=== PATIENT | female | born 2000 | race Caucasian/White ===

== ENCOUNTER 2021-05-20 11:40 | Emergency (ER) | payer OTHER, SELFPAY ==
--- NOTE | ~2021-05-20 | XR_ITS ---
EXAMINATION: XR ANKLE, LEFT CLINICAL INFORMATION: Twisting ankle injury. COMPARISON: None TECHNIQUE: AP, lateral, and mortise views of the left ankle. FINDINGS: There is an ossicle adjacent to the tip of the lateral malleolus which is difficult to characterize. This is at least partially corticated and may in fact the arising from the bone which would suggest old injury. These findings could be artifactual with overlapping structures and acute fracture is not excluded. There is associated soft tissue swelling. No effusion is seen. Alignment the ankle mortise is anatomic. XR/XR ankle LT min 3V IMPRESSION: Ossicle adjacent to the tip of the lateral malleolus suggesting avulsion injury of undetermined chronicity.
[2021-05-20 12:46] VITALS: BP 158/101; PULSE 93; RESP 18; TEMP 36.6; O2SAT 100; BMI 47.2
--- NOTE | 2021-05-20 13:24 | ED.LOWEXIN ---
HPI - Extremity Injury (Lower) General Chief Complaint: Extremity Injury, Lower Stated Complaint: L ANKLE INJ AT WORK Time Seen by Provider: 05/20/21 12:57 Source: patient Mode of arrival: ambulatory Limitations: no limitations History of Present Illness MD complaint: ankle injury and fall Onset (ago): hour(s) (Prior to arrival) Type of Injury: other (Twist injury) Place: work (While walking into work tripped on a hole in the parking lot outside of [employer]) Severity: moderate Relieving factors: nothing Exacerbating factors: weight bearing, movement and palpation Context: fall (/twist injury) Associated symptoms: swelling and able to partially bear weight Other symptoms: none Treatments prior to arrival: cold therapy Related Data Previous Rx's Medication Instructions Recorded acetaminophen 500 mg tablet 1,000 mg PO QID PRN #14 tab 05/20/21 (Tylenol Extra Strength) ibuprofen 800 mg tablet 800 mg PO Q8H PRN #14 tab 05/20/21 Allergies Allergy/AdvReac Type Severity Reaction Status Date / Time No Known Allergies Allergy Unverified 02/17/20 16:44 [No Known Allergies*] Review of Systems Review of Systems: Constitutional : No Weight loss, No Fever, No Chills, No Night Sweats, No Fatigue, No Malaise ENT/Mouth : No Hearing loss, No Ear Pain, No Nasal Congestion, No Sinus Pain, No Hoarseness, No sore throat, No Rhinorrhea, No Swallowing Difficulty Eyes: No Eye Pain, No Swelling, No Redness, No Foreign Body, No Discharge, No Vision Changes Cardiovascular : No Chest Pain, No SOB, No Dyspnea on Exertion, No Orthopnea, No Edema, No Palpitations Respiratory : No Cough, No Sputum, No Wheezing, No Smoke Exposure, No Dyspnea Gastrointestinal : No Nausea, No Vomiting, No Diarrhea, No Constipation, No abdominal Pain, No Hematochezia, No Melena Genitourinary : no irregular bleeding, No Dysuria, No Urinary Frequency, No Hematuria, No Urinary Incontinence, No Urgency, No Flank Pain, No Urinary Flow Changes, No Hesitancy Musculoskeletal : + joint pain/swelling, No Myalgias Skin : No Skin Lesions, No rash Neuro : No Weakness, No Numbness, No Paresthesias, No Loss of Consciousness, No Dizziness, No Headache Psych : No Anxiety/Panic, No Depression, No SI/HI/AH/VH, No Social Issues, Heme/Lymph: No Bruising, No Bleeding,No Lymphadenopathy Endocrine : No Polyuria, No Polydipsia, No Temperature Intolerance Yes all other systems are reviewed and are negative [facility] Past Medical History Attestation statement: The following information was validated with the patient. Social History Social History Advance Directives: No Advance Directives Information Provided: Yes Patient : No Physical Exam Vital Signs: Vital Signs: Last Vital Signs Temp 98 F 05/20/21 12:46 Pulse 93 05/20/21 12:46 Resp 18 05/20/21 12:46 BP 158/101 H 05/20/21 12:46 Pulse Ox 100 05/20/21 12:46 BMI result Body Mass Index 47.2 vital signs have been reviewed as normal and appeared to be correct. Blood pressure 158/101 Heart rate normal. Respiration rate normal. Temperature normal. Oxygen saturation normal. Appearance: Alert. Oriented X3. No acute distress. Head: Normal external exam. Normocephalic. Atraumatic. Eyes: PERRLA. EOMI. Conjunctiva and sclera normal. Eyelids normal. ENT: Pharynx normal. Uvula midline. Moist mucous membranes. Neck: Normal inspection. Neck supple. FROM. CVS: Normal heart rate and rhythm. Respiratory: No respiratory distress. Painless inspiration. Skin: Skin warm and dry. Normal skin color. Normal skin turgor. No rashes/lesions/lacerations noted. Extremities: Patient moderate tense palpation to the left ankle at the lateral malleolus with moderate soft tissue swelling no obvious deformities or tender ligamentous injury noted. No signs of infection. Achilles tendon is intact. No lower extremity edema or calf tenderness is noted. No 5th metatarsal pain. Otherwise all other Extremities exhibit normal range of motion and nontender. Neuro: Oriented X 3. No motor deficit. No sensory deficit. Reflexes normal. Normal steady gait. No focal neuro deficits noted. Vascular: + 2 distal pedal pulses/+2 dorsalis pedis b/l. Normal cap refill. No cyanosis noted to lower extremity toes nails. Course Course Course Narrative: 20-year-old female presenting to the ED with a work related injury with complaints of left ankle pain after she had a mechanical fall where she was walking into her job in the parking lot and she twisted her ankle after it it went into a garner that was in the parking lot that she did not notice. Denies head injury or loss of consciousness. Denies paresthesias. X-ray revealed ossicle adjacent to the tip of the lateral malleolus suggesting avulsion injury of indeterminate chronicity therefore print out the results and explained to the patient she reported that that is chronic since she was in 8th grade she had a left ankle fracture. Therefore most likely patient with a ankle sprain. Will treat symptomatically placed in a ortho boot and instructed to follow-up with Orthopedic and follow-up with [facility] to return if any new or worsening symptoms. Patient understands agrees with this plan. MDM - Extremity Injury (Lower) Medical Records Attestation: I reviewed the patient's medical records. Imaging Data Left ankle x-ray: Attestation: I personally reviewed and interpreted this imaging study as follows: Radiologist's impression: FINDINGS: There is an ossicle adjacent to the tip of the lateral malleolus which is difficult to characterize. This is at least partially corticated and may in fact the arising from the bone which would suggest old injury. These findings could be artifactual with overlapping structures and acute fracture is not excluded. There is associated soft tissue swelling. No effusion is seen. Alignment the ankle mortise is anatomic.? XR/XR ankle LT min 3V IMPRESSION: Ossicle adjacent to the tip of the lateral malleolus suggesting avulsion injury of undetermined chronicity. Procedures Orthopedic Splinting/Casting Injury #1: Side: left Lower Extremity Injury Location: ankle Lower Extremity Immobilizer: post-op shoe Discharge Plan Discharge Clinical Impression: Ankle sprain and strain, Fall, Work related injury Patient Disposition: Home, Self-Care Instructions: Ankle Sprain (ED), Cold Compress or Soak (ED), Walking Boot (ED), Return to Work Instructions (ED) Prescriptions: New ibuprofen 800 mg tablet 800 mg PO Q8H PRN (Reason: pain) Qty: 14 RF: 0 acetaminophen [Tylenol Extra Strength] 500 mg tablet 1,000 mg PO QID PRN (Reason: fever or pain) Qty: 14 RF: 0 Referrals: [facility] [Provider Group] - 2 days Abraham Neil MD [Physician] - 2 days (If symptoms persist call to make a follow-up appointment within the next 1-2 weeks) Stand Alone Forms: Work/School Release
== END 2021-05-20 14:03 | disposition home or self-care (01) ==
PROVIDERS: Emergency Provider Emergency Medicine
DX: S93.402A Sprain of unspecified ligament of left ankle, initial encounter (principal); S96.912A Strain of unspecified muscle and tendon at ankle and foot level, left foot, initial encounter; X50.1XXA Overexertion from prolonged static or awkward postures, initial encounter; Y93.01 Activity, walking, marching and hiking; Y92.481 Parking lot as the place of occurrence of the external cause; Y99.0 Civilian activity done for income or pay
CPT/HCPCS: 73610; 99283

== ENCOUNTER → 2021-06-12 14:45 | Outpatient (BNVA) | payer OTHER, SELFPAY | PROVIDERS: Visit Provider Physician Assistant | DX: S93.402A Sprain of unspecified ligament of left ankle, initial encounter (principal) | CPT/HCPCS: 99202 ==

== ENCOUNTER 2023-04-23 05:46 | Emergency (ER) | payer BC, SELFPAY ==
--- NOTE | ~2023-04-23 | CT_ITS ---
EXAMINATION: CT HEAD WITHOUT CONTRAST CLINICAL INFORMATION: Seizure. Head strike. COMPARISON: None available. TECHNIQUE: Contiguous axial imaging was performed from the skull base to vertex without intravenous administration of contrast. This CT examination was performed using dose optimization techniques as appropriate, variously including the following: *Automated exposure control *Adjustment of mA and/or kV according to patient size (this includes techniques or standardized protocols for targeted exams where dose is matched to indication/reason for exam; i.e. extremities or head) *Use of iterative reconstruction technique DLP: 668.00 mGy-cm FINDINGS: No intra or extra-axial fluid collection or hemorrhage, mass, or mass effect. Sulci and ventricles normal. Calvarium is intact. Nuchal periosteal thickening seen within the right ethmoid sinus small fluid level observed in the right maxillary sinus. CT/CT head/brain wo IV con IMPRESSION: No acute intracranial pathology. Evidence of right-sided sinus disease.
[2023-04-23 05:55] VITALS: BP 142/96; PULSE 79; RESP 16; TEMP 36.7; O2SAT 94; BMI 54.7
--- NOTE | 2023-04-23 07:17 | ECG_ITS ---
Test Reason : DIZZINESS Blood Pressure : / mmHG Vent. Rate : 085 BPM Atrial Rate : 085 BPM P-R Int : 132 ms QRS Dur : 082 ms QT Int : 366 ms P-R-T Axes : 013 007 -02 degrees QTc Int : 435 ms Normal sinus rhythm with sinus arrhythmia Normal ECG No previous ECGs available Referred By: Generic ED Physician Electronically Signed By:LAURA RIOS MD
[2023-04-23 07:44] LABS: MANUAL DIFF FLAG NO
[2023-04-23 07:46] LABS: Basophils Absolute Auto 0.1 X10*3/uL (0.0-0.2); Basophils Percent Auto 0.8 % (0-2); Eosinophils Absolute Auto 0.1 X10*3/uL (0.0-0.4); Eosinophils Percent Auto 1.4 % (0-4); Hematocrit 41.1 % (37.0-47.0); Imm Gran Abs Auto 0.04 X10*3/uL (0.00-0.03); Imm Gran Pct Auto 0.4 % (0.0-0.4); Lymphocytes Absolute Auto 2.6 X10*3/uL (1.2-4.9); Lymphocytes Percent Auto 27.9 % (20-40); Mean Corpuscular HGB Conc 31.6 g/dl (31.0-35.0); Mean Corpuscular Hemoglobin 27.7 pg (27.0-33.0); Mean Corpuscular Volume 87.4 fL (80.0-98.0); Mean Platelet Volume 9.7 fL (9.4-12.3); Monocytes Absolute Auto 0.4 X10*3/uL (0.1-1.2); Monocytes Percent Auto 4.3 % (2-11); Neutrophils Percent Auto 65.2 % (45-73); Platelet Count 317 X10*3/uL (160-400); White Blood Count 9.2 X10*3/uL (4.8-10.8)
[2023-04-23 07:56] LABS: Anion Gap 11 (12-20); Blood Urea Nitrogen 9 mg/dL (9-16); Carbon Dioxide 23 mmol/L (22-29); Chloride 112 mmol/L (96-108); Creatinine Clr Calc Pharmacy 200.5; Estimated Glomerular Filt Rate > 60; Glucose Random 99 mg/dL (60-115); Potassium 3.8 mmol/L (3.3-5.1); Sodium 142 mmol/L (135-145)
[2023-04-23 08:18] LABS: Troponin-I High Sensitivity < 2.7 ng/L (<3.5-17.0)
--- NOTE | 2023-04-23 08:35 | PC.NURSE ---
Patient placed in Room Pivot 2. While sleeping, rolled over and struck ear on bedside table. +small cut and began to bleed. When gettign out to bed to address cut, she had +syncopal episode. + swollen upper lip. Appears well at present. Skin p/w/d. Resting quietly on stretcher awaiting provider evaluation.
--- NOTE | 2023-04-23 08:50 | ED.FALL ---
HPI - Fall General Chief Complaint: Fall Stated Complaint: head inj passed out Time Seen by Provider: 04/23/23 07:41 Source: patient Mode of arrival: ambulatory Limitations: no limitations History of Present Illness HPI Narrative: 22 year old female with pmhx significant for migraines (on topiramate), PCOS, and grand mal seizures presents to the ED today for evaluation s/p syncopal episode this morning. She reports turning over in bed this morning and hitting her right ear on the corner of her nightstand. Her R ear began to bleed. She reports walking into her kitchen to tend to the bleeding and then passing out. Syncopal episode was witnessed by her cousin who reports LOC lasting approx 1-2 minutse. Patient endorses urinary incontinence. Denies tongue bite or confusion. Reports history of syncopal episodes when she has extreme pain. States this felt similar. Additionally reports history of grand mal seizures as an which resolved by age 1. Is not currently on an anticonvulsant. Not on AC. Only complaint in ED at present is headache. Denies fever, chills, diaphoresis, neck or back pain, shortness of breath, palpitations, chest pain, wheezing, difficulty breathing, N/V, abdominal pain. Related Data Previous Rx's Medication Instructions Recorded acetaminophen 500 mg tablet 1,000 mg (2 x 500 mg) PO QID PRN 05/20/21 (Tylenol Extra Strength) fever or pain #14 tabs ibuprofen 800 mg tablet 800 mg PO Q8H PRN pain #14 tabs 05/20/21 Allergies Allergy/AdvReac Type Severity Reaction Status Date / Time No Known Allergies Allergy Verified 06/12/21 14:58 [No Known Allergies*] Review of Systems Review of Systems: Constitutional: No fever, chills, fatigue, night sweats, weight changes ENT/Mouth: No ear pain, hearing loss, nasal congestion, sinus pain, rhinorrhea, sore throat Eyes: No eye pain, swelling, redness, vision changes, discharge Cardio: No chest pain, palpitations, [place], orthopnea, peripheral edema Pulm: No SOB, cough, sputum, wheezing, dyspnea, hemoptysis GI: No nausea, vomiting, hematemesis, abdominal pain, diarrhea, constipation, hematochezia, melena : No irregular bleeding, dysuria, frequency, urgency, hesitancy, hematuria, flank pain, urinary flow changes, urinary incontinence or retention MSK: No back pain, neck pain, joint pain, myalgias Skin: No lesions, rashes Neuro: No weakness, numbness, paresthesias, LOC, dizziness, +headache All other systems reviewed and are negative. [facility] Past Medical History Attestation statement: The following information was validated with the patient. Source: old records reviewed and nursing notes reviewed Surgical History Hx of tonsillectomy Social History Advance Directives: No Advance Directives Information Provided: Yes Current occupational status: employed Current occupation: [employer] Physical Exam Vital Signs: Vital Signs: Last Vital Signs Temp 98.0 F 04/23/23 05:55 Pulse 79 04/23/23 05:55 Resp 16 04/23/23 05:55 BP 142/96 H 04/23/23 05:55 Pulse Ox 94 04/23/23 05:55 O2 Del Method Room Air 04/23/23 05:55 BMI result Body Mass Index 54.7 Vital signs stable Const: General: cooperative, healthy appearing, comfortable, no acute distress, alert and awake Nutritional Appearance: obese Orientation/consciousness: patient oriented x3 Limitations: no limitations HEENT: Other: + Dried blood around the right pinna. No active bleeding. right EAC without evidence of dried blood. No erythema or edema. TM intact without perforation or effusion. Mastoids normal. Left pinnae, EAC and TMs normal. + No active bleeding noted to bilateral nares. No septal deviation or hematoma. + small laceration noted to the middle a bottom lip. No active bleeding. No tongue laceration. Head: Yes normal to inspection, Yes normocephalic, Yes atraumatic, No Trevino's sign, No raccoon eyes and No periorbital ecchymosis General nose exam: Normal external nose present Face and sinus: Yes normal facial exam Mouth: Normal oral and palatal mucosa present and moist mucous membranes Teeth and gingiva: dentition normal Eyes: Other: + EOMs intact without entrapment General: appearance normal, both eyes and all related structures Conjunctivae: conjunctivae normal Sclerae: sclerae normal Pupils: Equal, round and reactive pupils present Neck: Neck: Yes normal visual inspection and Yes full ROM Chest: Chest palpation & inspection: normal inspection of the chest, normal palpation of entire chest wall, no crepitus and no tenderness Resp: Effort & Inspection: normal respiratory effort, able to speak in complete sentences, no respiratory distress and symmetric chest movement Auscultation: clear to auscultation bilaterally Cardio: Rate: regular rate Rhythm: regular rhythm Peripheral pulses: radial pulses present GI: Inspection: Yes normal to inspection Palpation (GI): Soft to palpation and nontender Back/Spine/Pelvis: Other: no midline spinous tenderness. No paraspinal muscle tenderness bilaterally. No step-off deformity. Skin: General skin exam: no rashes or lesions noted Neuro: Other: Strength 5/5 intact throughout. No saddle anesthesia.?Sensation intact to light touch. Neurovascular intact distally.? General: patient oriented x3, gait normal and moves all extremities Cranial nerves: Yes CN's II-XII intact bilaterally and Yes Equal, round and reactive pupils present Coordination: [id number] test normal, [id number] test normal and Normal rapid alternating movements of the distal upper extremity present (Neuro) Pupils: Normal pupillary reactivity/response: bilateral Extrem: General: Yes normal to inspection, Yes full ROM and Yes capillary refill normal Course Course Course Narrative: 0950-- CBC without leukocytosis or anemia. Chemistry without acute electrolyte abnormality requiring intervention. Lactic WNL > unlikely seizure. EKG showing normal sinus rhythm with sinus arrhythmia, rate of 85 beats per minute, normal QT/ QTC, no acute ischemic changes or ST elevations. Troponin undetectable. CT head/ brain without acute intracranial pathology. No bleed or mass. However there is evidence of right sided sinus disease > She states she was just getting over a viral infection which correlates to image findings. > Informed patient of the unremarkable results. States she feels fine and headache is resolving. Informed her that she may have a concussion and that the recommendation for this is rest. Patient has remained stable throughout ED visit today. Discussed strict return precautions. All questions answered at this time. Patient is agreeable with disposition and stable for discharge. Medical Decision Making Medical Decision Making MDM Narrative: 22 year old female with pmhx significant for migraines (on topiramate), PCOS, and grand mal seizures presents to the ED today for evaluation s/p syncopal episode this morning. Vital signs stable. Patient is nontoxic appearing in acute distress. On exam, head is normocephalic and atraumatic. There is dried blood around the right pinna. No active bleeding. Right EAC without evidence of dried blood or active bleeding. No erythema or edema. TM intact without perforation or effusion. Mastoids normal. Left pinna, EAC and TMs normal. No active bleeding noted to bilateral nares. No septal deviation or hematoma. No tongue laceration. Small abrasion to middle of bottom lip. No active bleeding. Exam is nonfocal. Cerebellum intact. Clinical concern for vasovagal syncope vs seizure vs concussion. Will r/o ICH. Unlikely arrhythmia, ACS, PE. Plan at this time is to obtain basic labs, EKG, troponin, CT head/ brain and re-evaluate. Differential Diagnosis Differential Diagnoses: The differential diagnosis associated with the presentation includes As above. Admission/Observation Not indicated Lab Data MDM Lab Attestation statement: I reviewed the patient's lab results. As above. 04/23/23 07:41 04/23/23 07:41 Labs: Lab Results 04/23/23 04/23/23 Range/Units 07:41 09:22 WBC 9.2 (4.8-10.8) X10*3/uL RBC 4.70 (4.20-5.50) X10*6/uL Hgb 13.0 (12.0-16.0) g/dl Hct 41.1 (37.0-47.0) % MCV 87.4 (80.0-98.0) fL MCH 27.7 (27.0-33.0) pg MCHC 31.6 (31.0-35.0) g/dl RDW 14.0 (11.0-16.0) % Plt Count 317 (160-400) X10*3/uL MPV 9.7 (9.4-12.3) fL Immature Gran % (Auto) 0.4 (0.0-0.4) % Neut % (Auto) 65.2 (45-73) % Lymph % (Auto) 27.9 (20-40) % [place] % (Auto) 4.3 (2-11) % Eos % (Auto) 1.4 (0-4) % Baso % (Auto) 0.8 (0-2) % Lymph # (Auto) 2.6 (1.2-4.9) X10*3/uL [place] # (Auto) 0.4 (0.1-1.2) X10*3/uL Eos # (Auto) 0.1 (0.0-0.4) X10*3/uL Baso # (Auto) 0.1 (0.0-0.2) X10*3/uL Abs Immat Gran (auto) 0.04 H (0.00-0.03) X10*3/uL Absolute Neuts (auto) 6.0 (2.0-8.3) x10*3/uL Absolute Nucleated RBC 0.000 (0.0-0.012) X10*3/uL Nucleated RBC % (auto) 0.0 (0.0-0.2) /100WBC Sodium 142 (135-145) mmol/L Potassium 3.8 (3.3-5.1) mmol/L Chloride 112 H (96-108) mmol/L Carbon Dioxide 23 (22-29) mmol/L Anion Gap 11 L (12-20) BUN 9 (9-16) mg/dL Creatinine 0.73 (0.5-1.4) mg/dL Estim Creat Clear Calc 200.5 Estimated GFR > 60 Random Glucose 99 (60-115) mg/dL Lactic Acid 0.8 (0.5-2.0) mmol/L Calcium 9.0 (8.4-10.2) mg/dL Troponin I High Sens < 2.7 (<3.5-17.0) ng/L Independent Interpretation I performed an independent interpretation of an: EKG and CT Scan Interpretation: EKG showing normal sinus rhythm with sinus arrhythmia, rate of 85 bpmnormal QT, no ST segment elevations or acute ischemic changes. CT scan head brain without acute bleed or mass. Agree with radiologist's interpretation. Radiology Impression Discussion of test interpretation with radiology: I have reviewed the radiologist's reading. Radiologist Impression: CT head/brain wo IV con IMPRESSION: No acute intracranial pathology. Evidence of right-sided sinus disease. External Record Review External record reviewed: Inpatient record, Office record, Outpatient record, Prior outpatient labs, Prior outpatient radiology, Primary care record and Outside ED record Chronic Conditions Patient?s care impacted by: Other (seizures, migraines) Social Determinants Patient?s care significantly limited by Social Determinants of Health including: Other Social Determinant of Health Critical Care Time Critical Care Time Critical Care Time: No Discharge Plan Discharge Clinical Impression: Syncope Patient Disposition: Home, Self-Care Instructions: Syncope (ED) Additional Instructions: Your labs did not show evidence of acute infection or anemia. There are no electrolyte abnormalities. Your lactic acid is within normal limits indicating seizure is unlikely. Your cardiac enzymes were within normal limits. Your EKG was normal. CT of your head did not demonstrate bleed or mass. It did show some thickening within the right sinus consistent with your recent infection. You likely had a vasovagal syncope reaction secondary to pain. You may have a concussion. The recommendation for this is rest. You may feel confused over the next few days. You may take tylenol and ibuprfen as needed for BRAND. Please follow up with your PCP this week regarding visit. If symptoms persist or worsen, return to the ED. In the case of emergency call 911. Prescriptions: No Action ibuprofen 800 mg tablet 800 mg PO Q8H PRN (Reason: pain) Qty: 14 0RF acetaminophen [Tylenol Extra Strength] 500 mg tablet 1,000 mg PO QID PRN (Reason: fever or pain) Qty: 14 0RF Referrals: Physician,None [Primary Care Provider] - Stand Alone Forms: Work/School Release Interventions: ED Discharge Assessment Last Done: 04/23/23 10:41 Discharge Date/Time: 04/23/23 10:41
[2023-04-23 09:35] LABS: Lactic Acid 0.8 mmol/L (0.5-2.0)
== END 2023-04-23 10:41 | disposition home or self-care (01) ==
PROVIDERS: Physician Assistant Medical; Emergency Provider Emergency Medicine
DX: R55 Syncope and collapse (principal); R32 Unspecified urinary incontinence; R56.9 Unspecified convulsions; E28.2 Polycystic ovarian syndrome
CPT/HCPCS: 36415; 70450; 80048; 83605; 84484; 85025; 93005; 99283; 99284

== ENCOUNTER 2023-12-15 15:23 | Emergency (ER) | payer OTHER, SELFPAY ==
--- NOTE | ~2023-12-15 | XR_ITS ---
EXAMINATION: XR SHOULDER, LEFT CLINICAL INFORMATION: Pain and injury COMPARISON: None available. TECHNIQUE: Three views of the left shoulder. FINDINGS: The bones and soft tissues are normal. No fracture. Glenohumeral and acromioclavicular alignment is anatomic with normal joint space. No abnormal soft tissue calcifications. XR/XR shoulder LT min 2V IMPRESSION: Normal left shoulder.
--- NOTE | ~2023-12-15 | XR_ITS ---
EXAMINATION: XR LUMBOSACRAL SPINE CLINICAL INFORMATION: Pain and injury COMPARISON: None available. TECHNIQUE: Three views of the lumbosacral spine. FINDINGS: There is a mild convex right rotatory scoliotic lumbar curve. Bones are otherwise in normal anatomic alignment with no acute fracture or spondylolisthesis. Vertebral body heights and disc heights are preserved. Bowel gas pattern unremarkable XR/XR lumbar spine 2-3V IMPRESSION: Unremarkable examination.
[2023-12-15 15:33] VITALS: BP 122/82; PULSE 100; O2SAT 96
[2023-12-15 15:59] VITALS: BP 139/91; PULSE 93; RESP 18; TEMP 36.4; O2SAT 98; BMI 52.6
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
[2023-12-15 18:31] VITALS: BP 119/83; PULSE 86; RESP 16; TEMP 36.6; O2SAT 99
[2023-12-15 20:10] VITALS: BP 119/83; PULSE 86; RESP 16; TEMP 36.6; O2SAT 99
== END 2023-12-15 20:10 | disposition home or self-care (01) ==
PROVIDERS: Emergency Provider Student in an Organized Health Care Education/Training Program
DX: S13.4XXA Sprain of ligaments of cervical spine, initial encounter (principal); S80.02XA Contusion of left knee, initial encounter; S40.012A Contusion of left shoulder, initial encounter; M54.50 Low back pain, unspecified; M25.512 Pain in left shoulder; X58.XXXA Exposure to other specified factors, initial encounter; V43.52XA Car driver injured in collision with other type car in traffic accident, initial encounter; Y93.89 Activity, other specified; Y92.488 Other paved roadways as the place of occurrence of the external cause; Y99.8 Other external cause status
CPT/HCPCS: 72100; 73030; 99283; 99284

== ENCOUNTER 2024-05-23 08:59 | Emergency (ER) | payer SELFPAY ==
--- NOTE | ~2024-05-23 | XR_ITS ---
EXAMINATION: XR CHEST CLINICAL INFORMATION: cough. Cold flu symptoms COMPARISON: None available. TECHNIQUE: 2 views of the chest were obtained. FINDINGS: No significant abnormality is noted involving the heart, lungs, mediastinum, bony thorax or soft tissues. XR/XR chest 2V IMPRESSION: Unremarkable chest examination. Electronically signed by: Saravanan Blancas MD 05/23/2024 02:48 PM [facility]
[2024-05-23 09:06] VITALS: BP 158/89; PULSE 90; RESP 19; TEMP 36.1; O2SAT 99; BMI 50.2
--- NOTE | 2024-05-23 09:17 | ED.URI ---
HPI - URI/Sore Throat General Chief Complaint: Dental/Oral Stated Complaint: jaw pain/throat pain Time Seen by Provider: 05/23/24 09:16 Source: patient Mode of arrival: ambulatory Limitations: no limitations History of Present Illness ED Provider: Mallory Renee NP HPI Narrative: Patient is a 23-year-old female past medical history of migraines, PCOS, grand mal seizures who presents emergency department for evaluation. She reports that she has been experiencing cold-like symptoms for the past 3 weeks with nasal congestion and an intermittently productive cough that has not been alleviated by Mucinex and OTC cold medications. With the past 2 days she had developed pain to the left upper dental region, states that she has a wisdom tooth that had previously began to surface and feels as though it has surface more but she is having pain with eating and chewing, and a foul taste from the area. Denies any hot or cold sensitivity. Denies any prior/recent dental procedures to this area. Denies fevers, chills, headache, dizziness, neck pain, neck stiffness, chest pain, shortness of breath, difficulty breathing, nausea, vomiting, abdominal pain, numbness or tingling of the extremities, genitourinary symptoms. Related Data Previous Rx's ?Medication ?Instructions ?Recorded acetaminophen 500 mg tablet 1,000 mg (2 x 500 mg) PO QID PRN 05/20/21 (Tylenol Extra Strength) fever or pain #14 tabs ibuprofen 800 mg tablet 800 mg PO Q8H PRN pain #14 tabs 05/20/21 amoxicillin 875 mg-potassium 1 tab PO BID #14 tabs 05/23/24 clavulanate 125 mg tablet benzonatate 200 mg capsule 200 mg PO BID PRN cough #14 caps 05/23/24 Allergies Allergy/AdvReac Type Severity Reaction Status Date / Time kiwi Allergy Itching Verified 05/23/24 09:07 Review of Systems Review of Systems: Yes all other systems are reviewed and are negative PMFSH Past Medical History Attestation statement: The following information was validated with the patient. Source: old records reviewed Surgical History Hx of tonsillectomy Social History Social History Advance Directives: No Advance Directives Information Provided: Yes Do you have a plan to hurt others: No Plan Current occupational status: employed Current occupation: [employer] Physical Exam Vital Signs: Vital Signs: Last Vital Signs Temp 97 F 05/23/24 09:06 Pulse 90 05/23/24 09:06 Resp 19 05/23/24 09:06 BP 158/89 H 05/23/24 09:06 Pulse Ox 99 05/23/24 09:06 O2 Del Method Room Air 05/23/24 09:06 BMI result Body Mass Index 50.2 Appearance: Alert.?Oriented to person, place and time. No acute distress.?Normal affect. Eyes: Pupils equal, round and reactive to light.? ENT: TM normal bilaterally. Pharynx mildly erythematous without tonsillar hypertrophy or exudates. Uvula is midline. No trismus. No drooling. The reported tooth is #16 there is mild erythema of the surrounding gingiva without obvious fluctuance, no active pus-like drainage. Neck: Normal inspection.? Neck supple.??No cervical adenopathy. Full range of motion CVS: Heart sounds normal. Normal heart rate and rhythm.? Pulses normal.?? Respiratory: No respiratory distress.? Lung sounds clear to auscultation bilaterally?? Abdomen: Soft and non-tender. Normoactive bowel sounds. Skin: Skin warm and dry.? Normal skin color.? ? Extremities: No lower extremity edema.? Neuro: Moves all extremities spontaneously. Sensation intact bilaterally. No motor deficits. Ambulates with normal steady gait. Medical Decision Making Medical Decision Making MDM Narrative: Patient is a 23-year-old female presents emergency department for evaluation of a productive cough for 3 weeks as well as left upper dental/jaw pain as per HPI. COVID-19/influenza/RSV testing negative. 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 Given duration of her cough, obtaining CXR to exclude consolidation or infiltrate that might suggest pneumonia versus bronchitis. On evaluation of dentition, there does not appear to be an associated dental remy with the tooth in question, denying any temperature sensitivity, no active purulence or fluctuance to suggest an obvious abscess at this time, lower suspicion for acute pulpitis. There is mild gingival inflammation but no bleeding, maybe early gingivitis/periodontitis. No trismus, no associated sore throat, no dysphagia, no odynophagia, no hoarseness, no stridor, no dyspnea, low suspicion for paripharyngeal space infection. No induration below the angle of the mandible on the neck, nontoxic in appearance, unlikely parapharyngeal abscess. On examination no tenderness of the floor of the mouth, able to tolerate secretions, no drooling, no nuchal rigidity, no swelling to the neck, unlikely Kevan's angina. Overall she is Well-appearing, nontoxic, afebrile, no tachycardia or tachypnea/hypoxia. Speaking clear full sentences, ambulatory with steady gait. Findings discussed with patient, symptoms at this time consistent with bronchitis, concern for early dental infection no evidence of acute abscess. Prescription for Tessalon will be sent to pharmacy, conservative treatment as well, in addition course of Augmentin for of dental advised outpatient provider with a dentist. Reviewed worrisome signs and symptoms that would warrant re-evaluation in the emergency department. Differential Diagnosis Differential Diagnoses: The differential diagnosis associated with the presentation includes ( See narrative above) Admission/Observation Consideration of admission/observation: Escalation of care including admission/observation considered ( see narrative above) Lab Data MDM Lab Attestation statement: I reviewed the patient's lab results. ( see narrative above) Labs: Lab Results 05/23/24 05/23/24 Range/Units 09:10 12:02 Influenza Type A (PCR) NEGATIVE (Negative) Influenza Type B (PCR) NEGATIVE (Negative) RSV RNA Qual (PCR) NEGATIVE (Negative) SARS-CoV-2 RNA (RT-PCR) NEGATIVE (Negative) S. pyogenes GrpA ARMAAN Negative (Negative) Independent Interpretation I performed an independent interpretation of an: Plain X-Ray (No consolidation or infiltrates.) Radiology Impression Discussion of test interpretation with radiology: I have reviewed the radiologist's reading. External Record Review External record reviewed: Outpatient record Prescription Management I considered prescription management with: Pain Medication ( acetaminophen/ibuprofen) and Antibiotic Discharge Plan Discharge Clinical Impression: Bronchitis, Toothache Patient Disposition: Home, Self-Care Instructions: Acute Bronchitis (ED), Toothache (ED) Additional Instructions: Testing for COVID, flu, RSV, and strep throat were negative. Cough at this time is consistent with bronchitis which for some can last up to 6 weeks. Be sure to rest, stay well hydrated drinking plenty of fluids, eat small frequent meals. Tylenol/ibuprofen can be used as needed for fever/pain. [id number] cold medications may be helpful as well for symptoms. Saline nasal spray, humidifier may be helpful for nasal congestion. I have sent a prescription to your pharmacy for Tessalon Perles/benzonatate to help with cough. You may additionally use huhl-oad-excoacp throat lozenges. In regards to the dental pain that you are experiencing, as discussed I have started a course of antibiotics, take this twice daily and contact a dental provider so that you may establish care for further evaluation and treatment. You may return to the emergency department with any new or worsening symptoms or concerns. Follow-up with your primary care provider as needed. Call or visit any of the clinics below to establish with a dentist: [facility] [address] [place] [address] [facility] [address] [facility], [address] [address] [place] [address] [facility] [address] [place] [id number] [facility] [address] [place] [address] [place] [address] [place] [address] Prescriptions: New amoxicillin-pot clavulanate 875-125 mg tablet 1 tab PO BID Qty: 14 0RF benzonatate 200 mg capsule 200 mg PO BID PRN (Reason: cough) Qty: 14 0RF No Action ibuprofen 800 mg tablet 800 mg PO Q8H PRN (Reason: pain) Qty: 14 0RF acetaminophen [Tylenol Extra Strength] 500 mg tablet 1,000 mg PO QID PRN (Reason: fever or pain) Qty: 14 0RF Referrals: Physician,None [Primary Care Provider] - Print Language: Vietnamese
[2024-05-23 10:19] LABS: Influenza A PCR NEGATIVE (Negative); Influenza B PCR NEGATIVE (Negative); Resp Syncy Virus RNA Qual PCR NEGATIVE (Negative); SARS COV2 PCR INHOUSE NEGATIVE (Negative)
[2024-05-23 12:15] LABS: IDNOW Serial# 6674DD1D; Strep A Nucleic Acid Negative (Negative)
[2024-05-23 13:07] VITALS: BP 148/50; PULSE 85; RESP 19; TEMP 36.1; O2SAT 99
== END 2024-05-23 13:08 | disposition home or self-care (01) ==
PROVIDERS: Nurse Practitioner Family; Emergency Provider Emergency Medicine Emergency Medical Services
DX: J40 Bronchitis, not specified as acute or chronic (principal); R05.9 Cough, unspecified; J02.9 Acute pharyngitis, unspecified; K08.89 Other specified disorders of teeth and supporting structures; Z03.818 Encounter for observation for suspected exposure to other biological agents ruled out
CPT/HCPCS: 0241U; 71046; 87651; 99282; 99283

== ENCOUNTER → 2024-05-23 12:00 | Outpatient (BNV) | payer SELFPAY | PROVIDERS: Emergency Provider Emergency Medicine Emergency Medical Services; Visit Provider Radiology Diagnostic Radiology | DX: R05.9 Cough, unspecified (principal) | CPT/HCPCS: 71046 ==